=== PATIENT | female | born 1985 | race Caucasian/White ===

== ENCOUNTER 2021-01-02 07:25 | Day surgery (SDC) | payer OTHER ==
[~2021-01-02 07:25] MED LIST: CLARITIN10 M1 PO; PROAIR HFA8.5 GM IH; SINGULAIR 10MG10 MG PO; SYMBICORT 16010.2 GM IH
== END 2021-01-02 19:35 | disposition home or self-care (01) ==
LOC: CIR.AMB 07:25
PROVIDERS: ATTEND Orthopaedic Surgery Sports Medicine
DX: S83.241A Other tear of medial meniscus, current injury, right knee, initial encounter (principal); S83.511A Sprain of anterior cruciate ligament of right knee, initial encounter
CPT/HCPCS: 29888; 29881; C1776